=== PATIENT | female | born 1990 | race Caucasian/White ===

== ENCOUNTER 2020-06-04 22:20 | Emergency (ER) | payer MEDICAID ==
[~2020-06-04] VITALS: Ht 167.6 cm; Wt 81.6 kg
[2020-06-04 22:39] VITALS: BP 113/79
[2020-06-04] MEDS ORDERED: KETOROLAC 30 MG/ML VIAL IM STA (23:12)
[2020-06-04] MEDS ORDERED: DEXAMETHASONE 10 MG/ML VIAL IM STA (23:12)
[2020-06-04] MEDS ORDERED: AZITHROMYCIN 250 MG TAB PO STA (23:12)
[2020-06-04] MEDS ORDERED: cefTRIAXone 1,000 MG in LIDOCAINE MPF 1% 2.1 ML IM ONE (23:15)
[2020-06-04] MEDS ORDERED: cefTRIAXone 1,000 MG VIAL ONE (23:32)
[2020-06-04] MEDS ORDERED: LIDOCAINE MPF 1% 5 ML ONE (23:33)
[2020-06-04 23:56] VITALS: BP 113/79
== END 2020-06-04 23:56 | disposition home or self-care (01) ==
LOC: MED 22:20
DX: J01.90 Acute sinusitis, unspecified (principal); R09.89 Other specified symptoms and signs involving the circulatory and respiratory systems; R30.0 Dysuria; Z11.3 Encounter for screening for infections with a predominantly sexual mode of transmission
CPT/HCPCS: 96372; 99284; J0696; J1100; J1885; J2001

== ENCOUNTER 2022-10-12 20:43 | Emergency (ER) | payer MEDICAID ==
[~2022-10-12] VITALS: Ht 167.6 cm; Wt 72.6 kg
[2022-10-12 20:54] VITALS: BP 117/73; PULSE 132; RESP 19; TEMP 98.7; O2SAT 100
--- NOTE | 2022-10-12 21:34 | NUR ---
pt to restroom for urine
[2022-10-12 21:44] LABS: APPEARANCE,URINE CLOUDY (CLEAR); BILIRUBIN,URINE NEGATIVE (NEGATIVE); BLOOD, URINE 1+ (NEGATIVE); COLOR,URINE YELLOW (YELLOW); LEUKOCYTE ESTERASE ,URINE 2+ (NEGATIVE); NITRITE, URINE POSITIVE (NEGATIVE); PH,URINE 8.5 (5.0-9.0); UGLUCOSE NEGATIVE (NEGATIVE)
--- NOTE | 2022-10-12 21:46 | NUR ---
PT AMBULATE TO ROOM 6
[2022-10-12] MEDS ORDERED: NACL 0.9% 1,000 ML IV ONE (21:55)
[2022-10-12 21:58] LABS: RBC,URINE 20-50 /HPF (0-5); RED BLOOD CELL CASTS,URINE 0-10 /LPF (None Seen); TRICHOMONAS,URINE None Seen /HPF (None Seen); YEAST,URINE None Seen /HPF (None Seen)
--- NOTE | 2022-10-12 22:01 | NUR ---
32 YO F BIB SELF C/O FEVER, HEADACHE, AND VOMITING X 3 DAYS. PT TEMP CURRENTLY 103.[address] MCGREGOR AWARE. 12/25 HEADACHE. PT STATES LAST BM 3 DAYS AGO WHEN ONSETOF SYMPTOMS BEGAN. PT STATES "MY EYES BURN WHEN I CLOSE THEM". LIGHTS DIMMED FOR PT COMFORT. NKDA NO MED HX.
[2022-10-12 22:02] LABS: BARBITURATE, URINE NEGATIVE ng/ml (NEG <=200); BENZODIAZEPINE, URINE NEGATIVE ng/mL (NEG <=200); CANNABINOID, URINE NEGATIVE ng/mL (NEG <=50); COCAINE, URINE NEGATIVE ng/mL (NEG <=300); OPIATE, URINE NEGATIVE ng/mL (NEG <=2000); PHENCYCLIDINE SCREEN,URINE NEGATIVE ng/mL (NEG <=25)
[2022-10-12] MEDS ORDERED: cefTRIAXone 2,000 MG in DEXTROSE 5% 100 ML IV ONE (22:50)
[2022-10-12] MEDS ORDERED: cefTRIAXone 2,000 MG VIAL ONE (22:52)
[2022-10-12 22:55] LABS: BASOPHILS % (AUTO) 0.4 % (0.0-2.0); EOSINOPHILS % (AUTO) 0.2 % (0.0-4.0); HEMATOCRIT 37.3 % (36-48); HEMOGLOBIN 12.6 g/dL (12.0-16.0); LYMPHOCYTES # (AUTO) 1.7 K/uL (2.5-16.5); LYMPHOCYTES % (AUTO) 15.2 % (20.5-51.1); MEAN CORPUSCULAR HEMOGLOBIN 28 pg (27-31); MEAN CORPUSCULAR HGB CONC 34 g/dL (33-37); MEAN CORPUSCULAR VOLUME 81.6 fL (80-94); MONOCYTES % (AUTO) 9.2 % (1.7-9.3); NEUTROPHILS # (AUTO) 8.5 K/uL (1.8-7.7); PLATELET COUNT (AUTO) 323 K/uL (140-450); RED BLOOD CELL COUNT(AUTO) 4.57 MIL/uL (4.20-5.40); RED CELL DISTRIBUTION WIDTH 13.3 % (11.6-13.7); WHITE BLOOD COUNT (AUTO) 11.4 K/uL (4.8-10.8)
[2022-10-12 23:05] VITALS: BP 124/74; PULSE 113; RESP 17
[2022-10-12 23:11] LABS: ALBUMIN 3.1 g/dL (3.4-5.0); ANION GAP 12.5 (8-16); POTASSIUM 3.5 mmol/L (3.5-5.1); TOTAL BILIRUBIN 0.2 mg/dL (0.0-1.0)
[2022-10-12] MEDS ORDERED: KETOROLAC 60 MG/2 ML VIAL IM ONE (23:15)
[2022-10-12] MEDS ORDERED: IBUPROFEN 600 MG TAB PO ONE (23:20)
[2022-10-13] VITALS: TEMP 101
[2022-10-13 00:09] VITALS: O2SAT 98
--- NOTE | 2022-10-13 00:10 | NUR ---
PT C/O HEADACHE 10/25. DR MCGREGOR AWARE. PT LYING IN BED WITH CALL LIGHT WITHIN REACH.
[2022-10-13] MEDS ORDERED: CIPR500T4 PO (00:31)
--- NOTE | 2022-10-13 00:37 | NUR ---
Patient discharged with v/s stable. Written and verbal after care instructions given and explained. Patient verbalized understanding. Ambulatory with steady gait. All questions addressed prior to discharge. Advised to follow up with PMD.
== END 2022-10-13 00:37 | disposition home or self-care (01) ==
LOC: MED 20:43
DX: N39.0 Urinary tract infection, site not specified (principal); Z79.899 Other long term (current) drug therapy
CPT/HCPCS: 36415; 80053; 80305; 81001; 83605; 85025; 87040; 87086; 96361; 96365; 99284; J0696; J7030; J1885